=== PATIENT | male | born 1945 | race Caucasian/White ===

== ENCOUNTER → 2017-01-17 | Outpatient (CLI) | payer MEDICARE, OTHER ==
[~2017-01-17] MED LIST: ASPIR 8181 MG PO; FOLIC ACID1 MG PO; INDERAL TAB 2020 MG PO; LATANOPROST2.5 ML OU; LIBRIUM CAP 2525 MG PO; MULTI-DAY VITA1 EACH PO; PRILOSEC OTC20 MG PO; PROAIR HFA8.5 GM INH; SYMBICORT 16010.2 GM INH; THIAMINE HCL100 MG PO
== END ==
LOC: CT 12:25
DX: Z87.891 Personal history of nicotine dependence (principal); R91.1 Solitary pulmonary nodule
CPT/HCPCS: G0297